=== PATIENT | female | born 2000 | race Two or more races ===

== ENCOUNTER 2022-06-25 00:05 | Inpatient (IN) | payer OTHER ==
[2022-06-25 00:51] LABS: BASO % 0.3 % (0-2.0); EOS % 0.1 % (0-4.5); HEMATOCRIT 37.8 % (32.4-45.2); LYMPH % 14.1 % (8-40); MCH 31.5 pg (25.7-33.7); MCHC 34.4 g/dl (32.0-36.0); MEAN CELL VOLUME 91.5 fl (80-96); MEAN PLT VOLUME 8.9 fl (7.5-11.1); MONO % 6.1 % (3.8-10.2); NEUT % 79.4 % (42.8-82.8); PLATELET COUNT 265 10^3/uL (134-434); RBC 4.13 M/mm3 (3.60-5.2); RDW 14.7 % (11.6-15.6); WHITE BLOOD COUNT 15.4 K/mm3 (4.0-10.0)
[2022-06-25 00:55] LABS: INR 1.03 (0.83-1.09); PROTHROMBIN TIME (PATIENT) 11.9 SEC (9.7-13.0)
[2022-06-25 00:58] LABS: ACTIVATED PTT 27.6 SECONDS (25.2-36.5)
[2022-06-25 01:11] LABS: BLOOD UREA NITROGEN 8.8 mg/dL (7-18)
[2022-06-25 01:15] LABS: CREATININE 0.6 mg/dL (0.55-1.3)
[2022-06-25] MEDS ORDERED: ELECTROLYTE-148 SOLN 1,000 ML IV SCH (01:15)
[2022-06-25] MEDS ORDERED: BUTORPHANOL TARTRATE 2 MG/ML VIAL IVPB ONE (01:29)
[2022-06-25] MEDS ORDERED: BUTORPHANOL TARTRATE 1 MG/ML VIAL ONE (01:29)
[2022-06-25] MEDS ORDERED: PROMETHAZINE HCL 25 MG/1 ML VIAL IVPB ONE (01:31)
[2022-06-25 01:39] VITALS: BMI 44.0
[2022-06-25] MEDS ORDERED: OXYTOCIN 20 UNITS in 0.9% NS 20 UNIT/1,000 ML INFUS.BAG IV ONE ×2 (01:55→03:08)
[2022-06-25] MEDS ORDERED: MISOPROSTOL 200 MCG TABLET ONE (02:35)
[2022-06-25] MEDS ORDERED: WITCH HAZEL 50% (TUCKS) 40 PAD/JAR PAD TP PRN (02:45)
[2022-06-25] MEDS ORDERED: oxyCODONE HCL 5 MG TABLET PO PRN (02:45)
[2022-06-25] MEDS ORDERED: METHYLERGONOVINE MALEATE 0.2 MG/1 ML AMP IM PRN (02:45)
[2022-06-25] MEDS ORDERED: OXYTOCIN 20 UNITS in 0.9% NS 20 UNIT/1,000 ML INFUS.BAG IV SCH ×2 (02:45→03:00)
[2022-06-25] MEDS ORDERED: BENZOCAINE 28 GM HEMORRHOIDAL OINTMENT TP PRN (02:45)
[2022-06-25] MEDS ORDERED: BISACODYL 10 MG SUPP.RECT RC PRN (02:45)
[2022-06-25] MEDS ORDERED: ACETAMINOPHEN 325 MG TABLET (FP) PO PRN (02:45)
[2022-06-25] MEDS ORDERED: BENZOCAINE 20% 57 GM BOTTLE TP PRN (02:45)
[2022-06-25] MEDS ORDERED: IBUPROFEN 600 MG TABLET (FP) PO PRN (02:45)
[2022-06-25] MEDS ORDERED: MISOPROSTOL 200 MCG TABLET PV STA (02:49)
[2022-06-25 02:58] LABS: CORD BASE EXCESS -2.5 mmol/L (0-2); CORD HCO3 22.7 mmHg (20-29); CORD pH 7.362 (7.14-7.44)
[2022-06-25] MEDS: FERROUS SO4 325 MG TABLET (FP) PO SCH ×3 (08:27→18:23)
[2022-06-25] MEDS: PRENATAL VITAMINS W/ FOLIC ACID TABLET (FP) PO SCH (09:43)
[2022-06-25] MEDS ORDERED: DIPHTH,PERTUSS(ACELL),TET 0.5 ML DISP.SYRIN IM ONE (11:00)
[2022-06-25] MEDS ORDERED: FLU VACC QS2022-23(6MOS UP)/PF 60 MCG/0.5 ML SYRINGE IM ONE (11:00)
[2022-06-26 09:29] LABS: BASO % 0.5 % (0-2.0); EOS % 0.8 % (0-4.5); HEMATOCRIT 31.9 % (32.4-45.2); HEMOGLOBIN 10.7 GM/dL (10.7-15.3); LYMPH % 28.1 % (8-40); MCH 31.1 pg (25.7-33.7); MCHC 33.6 g/dl (32.0-36.0); MEAN CELL VOLUME 92.4 fl (80-96); MEAN PLT VOLUME 8.4 fl (7.5-11.1); MONO % 8.3 % (3.8-10.2); NEUT % 62.3 % (42.8-82.8); PLATELET COUNT 237 10^3/uL (134-434); RBC 3.45 M/mm3 (3.60-5.2); RDW 14.7 % (11.6-15.6); WHITE BLOOD COUNT 12.3 K/mm3 (4.0-10.0)
[2022-06-26] MEDS: PRENATAL VITAMINS W/ FOLIC ACID TABLET (FP) PO SCH (09:36)
[2022-06-26] MEDS: FERROUS SO4 325 MG TABLET (FP) PO SCH ×2 (09:36→13:15)
[2022-06-26 13:23] VITALS: BP 101/61; PULSE 87; RESP 17; TEMP 98.2
[2022-06-26] MEDS ORDERED: SENNOSIDES/DOCUSATE COMBO (SENNA PLUS) TABLET (UD) PO PRN (22:00)
== END 2022-06-26 15:20 | disposition home or self-care (01) | DRG 560 ==
LOC: JDEL 00:05 → JLDR 00:06 → J3W 04:45
PROVIDERS: ADMIT Obstetrics & Gynecology; ATTEND Obstetrics & Gynecology
PROC: 10E0XZZ Delivery of Products of Conception, External Approach (ICD-10-PCS; principal; 2022-06-25)
PROC: 0KQM0ZZ Repair Perineum Muscle, Open Approach (ICD-10-PCS; 2022-06-25)
PROC: 0W8NXZZ Division of Female Perineum, External Approach (ICD-10-PCS; 2022-06-25)
DX: O70.1 Second degree perineal laceration during delivery (principal); Z3A.41 41 weeks gestation of pregnancy; Z37.0 Single live birth
CPT/HCPCS: 36415; 36600; 59025; 59409; 80048; 82803; 85025; 85610; 85730; 86780; 86850; 86900; 86901; 90715; C9803-CS; G0008; Q2036; U0003; U0005